=== PATIENT | female | born 1950 | race Caucasian/White ===

== ENCOUNTER 2024-09-29 09:24 | Inpatient (IN) | payer MEDICARE, OTHER ==
[~2024-09-29] VITALS: Ht 152.4 cm; Wt 70.3 kg
[2024-09-29] MEDS ORDERED: AZIL40TA PO (09:38)
[2024-09-29] MEDS ORDERED: NEBI2.5T5 (09:38)
[2024-09-29 10:20] LABS: PLATELET COUNT (AUTO) 260 K/uL (179-408); RED BLOOD CELL COUNT(AUTO) 4.70 MIL/uL (3.63-4.92); RED CELL DISTRIBUTION WIDTH 13.8 % (12.3-17.7); WHITE BLOOD COUNT (AUTO) 11.3 K/uL (3.8-11.8)
[2024-09-29 10:35] LABS: ASPARTATE AMINOTRANSFERASE 21 U/L (15-37); CREATININE 1.1 mg/dL (0.6-1.3); SODIUM SERUM 136 mmol/L (136-145); TOTAL PROTEIN, SERUM 7.8 g/dL (6.4-8.2); UREA NITROGEN, BLOOD 31 mg/dL (7-18)
[2024-09-29] MEDS ORDERED: METOCLOPRAMIDE HCL 10 MG/2 ML VIAL ONE (10:55)
[2024-09-29] MEDS ORDERED: KETOROLAC TROMETHAMINE 15 MG INJ ONE (10:55)
[2024-09-29] MEDS: METOCLOPRAMIDE HCL 10 MG/2 ML VIAL IV ONE (10:56)
[2024-09-29] MEDS: IV NORMAL SALINE 1000 ML BAG IV ONE ×2 (10:56→14:15)
[2024-09-29] MEDS: KETOROLAC TROMETHAMINE 15 MG INJ IVP ONE (11:30)
[2024-09-29 12:21] LABS: *BILIRUBIN,URIN NEGATIVE (NEGATIVE); *CLARITY,URINE CLEAR (CLEAR); *COLOR,URINE YELLOW (YELLOW); *KETONES,URINE 1+ (NEGATIVE); *PROTEIN,URINE 1+ (NEGATIVE); *UROBILINOGEN,URINE 0.2 E.U./dl (NORMAL); LEUKOCYTE ESTERASE ,URINE NEGATIVE (NEGATIVE); NITRITE, URINE NEGATIVE (NEGATIVE); UGLUCOSE 2+ (NEGATIVE)
[2024-09-29 12:25] LABS: *BLOOD, URINE TRACE (NEGATIVE)
[2024-09-29 12:26] LABS: SQUAMOUS EPITHELIAL CELL,UR FEW /HPF (NONE SEEN)
[2024-09-29] MEDS ORDERED: NEBI20TA2 PO (13:44)
[2024-09-29] MEDS ORDERED: EMPA1TAB24 PO (13:47)
[2024-09-29] MEDS ORDERED: TIRZEPATIDE SUBCUT (13:49)
[2024-09-29 14:02] LABS: LACTIC ACID 2.7 mmol/L (0.4-2.0)
[2024-09-29 14:47] VITALS: BP 115/45; TEMP 98.3; O2SAT 94
[2024-09-29] MEDS ORDERED: ICOS1CAP PO (14:50)
[2024-09-29] MEDS: PIPERACILLIN SODIUM/TAZOBACTAM 3.375 G in IV DEXTROSE 5% 100 ML IV ONE (15:33)
[2024-09-29] MEDS ORDERED: ONDANSETRON 4 MG/2 ML VIAL IV PRN (15:45)
[2024-09-29] MEDS ORDERED: MORPHINE SULFATE 2 MG/1 ML DISP.SYRIN IV PRN (15:45)
[2024-09-29] MEDS ORDERED: ACETAMINOPHEN 650 MG SUPP.RECT RC PRN (15:45)
[2024-09-29] MEDS ORDERED: DEXTROSE 50% 50 ML DISP.SYRIN IV PRN (16:00)
[2024-09-29] MEDS: IV D5 1/2 NS 1000 ML 1,000 ML IV PRN (18:29)
[2024-09-29] MEDS: BLOOD SUGAR DIAGNOSTIC 1 EACH STRIP VI SCH (18:36)
[2024-09-29] MEDS: PIPERACILLIN SODIUM/TAZOBACTAM 3.375 G in IV DEXTROSE 5% 50 ML IV ONE (18:39)
[2024-09-29 20:05] VITALS: BP 134/72; TEMP 98.6; O2SAT 97
[2024-09-29] MEDS: PIPERACILLIN SODIUM/TAZOBACTAM 3.375 G in IV DEXTROSE 5% 100 ML IV SCH (21:09)
[2024-09-29] MEDS ORDERED: METRONIDAZOLE 500 MG/NS 100ML 500 MG in PREMIXED 1 EACH IV SCH (22:00)
[2024-09-29] MEDS ORDERED: PIPERACILLIN SODIUM/TAZOBACTAM 3.375 G in IV DEXTROSE 5% 50 ML IV SCH (22:00)
[2024-09-30 00:31] VITALS: BP 130/69; TEMP 98.4; O2SAT 94
[2024-09-30 04:39] VITALS: BP 142/79; TEMP 98.1; O2SAT 93
[2024-09-30 06:41] LABS: PLATELET COUNT (AUTO) 227 K/uL (179-408); RED BLOOD CELL COUNT(AUTO) 4.27 MIL/uL (3.63-4.92); RED CELL DISTRIBUTION WIDTH 14.2 % (12.3-17.7); WHITE BLOOD COUNT (AUTO) 7.6 K/uL (3.8-11.8)
[2024-09-30 07:02] LABS: ASPARTATE AMINOTRANSFERASE 15 U/L (15-37); CREATININE 1.0 mg/dL (0.6-1.3); SODIUM SERUM 143 mmol/L (136-145); TOTAL PROTEIN, SERUM 5.8 g/dL (6.4-8.2); UREA NITROGEN, BLOOD 15 mg/dL (7-18)
[2024-09-30 08:21] VITALS: BP 126/59; TEMP 98.7; O2SAT 98
[2024-09-30] MEDS: PANTOPRAZOLE SODIUM 40 MG VIAL IV SCH (08:23)
[2024-09-30] MEDS: INSULIN REGULAR, HUMAN 1000 UNIT/10 ML VIAL SQ PRN (08:25)
[2024-09-30 11:03] VITALS: BP 141/86; TEMP 98.2; O2SAT 99
[2024-09-30 15:29] VITALS: BP 125/67; TEMP 98.4; O2SAT 96
[2024-09-30 19:42] VITALS: TEMP 98.1
[2024-10-01 01:00] VITALS: TEMP 98.1
[2024-10-01 06:00] VITALS: TEMP 98.2
[2024-10-01 07:41] VITALS: BP 132/74; TEMP 98.4; O2SAT 94
[2024-10-01 10:48] VITALS: BP 153/76; TEMP 98; O2SAT 95
[2024-10-01] MEDS: MAGNESIUM HYDROXIDE 30 ML LIQUID UDC PO ONE (10:57)
== END 2024-10-01 12:40 | disposition home health service (06) | DRG 372 ==
LOC: ER 09:33 → TELE3 14:03
PROVIDERS: ADMIT Internal Medicine; ATTEND Internal Medicine
PROC: 05HC33Z Insertion of Infusion Device into Left Basilic Vein, Percutaneous Approach (ICD-10-PCS; principal; 2024-09-29)
DX: A04.9 Bacterial intestinal infection, unspecified (principal); E87.20 Acidosis, unspecified; I50.20 Unspecified systolic (congestive) heart failure; K59.00 Constipation, unspecified; K44.9 Diaphragmatic hernia without obstruction or gangrene; E66.9 Obesity, unspecified; Z68.30 Body mass index [BMI] 30.0-30.9, adult; Z90.49 Acquired absence of other specified parts of digestive tract; Z79.899 Other long term (current) drug therapy; K57.30 Diverticulosis of large intestine without perforation or abscess without bleeding; E78.5 Hyperlipidemia, unspecified; Z87.891 Personal history of nicotine dependence; Z79.84 Long term (current) use of oral hypoglycemic drugs; I11.9 Hypertensive heart disease without heart failure; E11.42 Type 2 diabetes mellitus with diabetic polyneuropathy; K86.9 Disease of pancreas, unspecified
CPT/HCPCS: 36415; 71045; 83605; 83690; 83735; 84100; 84443; 84484; 85025; 85730; 86140; 87040; A4606; A4663; G0378; J1815; J1885; J2470; J2543; J2765; J3490; J7040